=== PATIENT | male | born 1995 | race African-American/Black ===

== ENCOUNTER 2021-05-13 10:38 | Emergency (ER) | payer OTHER ==
[2021-05-13 10:45] VITALS: BP 120/88; TEMP 97.8
[2021-05-13] MEDS ORDERED: ALBUTEROL SO4 2.5/IPRATROPIUM 0.5 INH SOL 3 ML VIAL.NEB. NEB ONE ×2 (10:49→11:02)
[2021-05-13 11:02] VITALS: BMI 44.3
[2021-05-13] MEDS ORDERED: DEXAMETHASONE LIQUID 0.5 MG/5 ML PO ONE (11:03)
[2021-05-13] MEDS ORDERED: DEXAMETHASONE SOD PHOSPHATE 10 MG/1 ML VIAL ONE (11:29)
[2021-05-13 12:36] VITALS: PULSE 119
== END 2021-05-13 12:35 | disposition home or self-care (01) ==
LOC: FER 10:38
PROC: 3E0F7GC Introduction of Other Therapeutic Substance into Respiratory Tract, Via Natural or Artificial Opening (ICD-10-PCS; principal; 2021-05-13)
DX: R06.2 Wheezing (principal); J20.9 Acute bronchitis, unspecified
CPT/HCPCS: 71045-TC-FY; 93005; 94640; 99284-25